=== PATIENT | male | born 1990 | race Caucasian/White ===

== ENCOUNTER → 2017-03-08 | Outpatient (CLI) | payer BC ==
[~2017-03-08] MED LIST: CEPH500C PO; SULF800T23 PO
--- NOTE | 2017-03-08 13:43 | DIAGNOSTIC IMAGING REPORT ---
CHEST 2 VIEWS ROUTINE CLINICAL HISTORY: R06.09 Dyspnea on [id number] dyspnea COMPARISON STUDY: No previous studies for comparison. FINDINGS: The bones soft tissues and hemidiaphragms are normal. The cardiomediastinal silhouette is normal. The lungs are clear. The pulmonary vasculature is normal. IMPRESSION: Negative chest. The above report was generated using voice recognition software. It may contain grammatical, syntax or spelling errors. Electronically signed by: Dennis Pires M.D. 03/08/2017 1:42 PM Dictated Date/Time: 03/08/2017 1:37 PM
== END | disposition home or self-care (01) ==
LOC: C.RAD1850 13:25
PROVIDERS: ATTEND Internal Medicine
DX: R06.09 Other forms of dyspnea (principal)

== ENCOUNTER → 2017-03-14 | Outpatient (CLI) | payer BC ==
--- NOTE | 2017-03-14 07:37 | DIAGNOSTIC IMAGING REPORT ---
ABDOMEN LIMITED (US) CLINICAL HISTORY: R74.0 elevated liver function tests. Hepatic steatosis. COMPARISON STUDY: 06/26/2015 FINDINGS: The liver is of increased echogenicity, nonspecific finding most often seen in hepatic steatosis. There is no right-sided hydronephrosis. There is no ductal dilatation. The common bile duct measures 6 mm. There is a hypoechoic focus in the liver adjacent to gallbladder fossa likely representing focal fatty sparing. The gallbladder appears sonographically normal. The pancreas appears normal as visualized. IMPRESSION: 1. Increased hepatic echogenicity, consistent with hepatic steatosis 2. No evidence of ductal dilatation 3. Ultrasonographically normal gallbladder and pancreas Electronically signed by: Grayson Rosa M.D. 03/14/2017 7:36 AM Dictated Date/Time: 03/14/2017 7:35 AM
== END | disposition home or self-care (01) ==
LOC: C.ULTR 07:12
PROVIDERS: ATTEND Internal Medicine
DX: R74.0 Nonspecific elevation of levels of transaminase and lactic acid dehydrogenase [LDH] (principal); Z87.19 Personal history of other diseases of the digestive system

== ENCOUNTER → 2017-04-11 | Outpatient (CLI) | payer BC ==
[~2017-04-11] VITALS: Ht 185.4 cm; Wt 103.0 kg
[2017-04-11 12:19] VITALS: BP 129/84; PULSE 55; Ht 185.4 cm; Wt 103.0 kg
== END | disposition home or self-care (01) ==
LOC: C.NEUR 11:53
PROVIDERS: ATTEND Internal Medicine Pulmonary Disease
DX: G47.30 Sleep apnea, unspecified (principal); R53.83 Other fatigue

== ENCOUNTER → 2017-06-08 | Day surgery (SDC) | payer BC ==
[2017-06-07 08:28] VITALS: Ht 185.4 cm; Wt 104.5 kg
[~2017-06-08] VITALS: Ht 185.4 cm; Wt 104.5 kg
[~2017-06-08] MED LIST changes: -CEPH500C PO; +LIDOCAINE HCL 2% 2 ML VIAL (20MG/ML) ONE; +MIDAZOLAM HCL 1 MG/ML 2ML VIAL ONE; +MODA200T42 PO; +PROPOFOL IV EMULSION 10 MG/ML 20 ML VIAL IV ONE; +SODIUM CHLORIDE 0.9% 500ML 500 ML IV ONE; -SULF800T23 PO
--- NOTE | 2017-06-08 14:57 | Endo History and Physical ---
History & Physical Date of Service: Jun 08, 2017. Chief Complaint: CHANGE IN BOWEL HABITS, RECTAL BLEEDING Referring Physician: DR. CASILLAS History of Present Illness rectal bleeding; change in BM Past Surgical History Hx Cardiac Surgery: No Hx Internal Defibrillator: No Hx Pacemaker: No Hx Abdominal Surgery: No Hx of Implantable Prosthesis: No Hx Post-Op Nausea and Vomiting: No Hx Cancer Surgery: No Hx Thoracic Surgery: No Hx Orthopedic: Yes (LEFT KNEE ARTHROSCOPY) Hx Urinary Tract Surgery: No Family History None Social History Smoking Status: Never Smoker Hx Substance Use: No Hx Alcohol Use: No Allergies Coded Allergies: NO KNOWN DRUG ALLERGIES (Verified Allergy, Unknown, ., 06/08/17) Current Medications Reported Home Medications Medications Dose Route/Sig Max Daily Dose Days Date Category Provigil (Modafinil) 200 Mg Tab 200 Mg PO QAM 06/07/17 Reported Vital Signs Weight (Kilograms): 104.55 Height (Feet): 6 Height (Inches): 1 Date Time Temp Pulse Resp B/P (MAP) Pulse Ox O2 Delivery O2 Flow Rate FiO2 06/08/17 14:23 36.7 65 20 129/65 (86) 100 Room Air Physical Exam General Appearance: WD/WN, no apparent distress Respiratory/Chest: Auscultation: breath sounds normal Cardiovascular: Heart Auscultation: RRR Abdomen: Bowel Sounds: normal Inspection & Palpation: soft, non-distended, no tenderness, guarding & rebound Assessment and Plan colonoscopy with bx if needed
--- NOTE | 2017-06-08 15:21 | Discharge Instructions ---
Endoscopy Patient Instructions Date / Procedure(s) Performed Jun 08, 2017. Colonoscopy Allergy Information Coded Allergies: NO KNOWN DRUG ALLERGIES (Verified Allergy, Unknown, ., 06/08/17) Discharge Date / Findings Jun 08, 2017. Hemorrhoids Reported Home Medications Medications Dose Route/Sig Max Daily Dose Days Date Category Provigil (Modafinil) 200 Mg Tab 200 Mg PO QAM 06/07/17 Reported Medication Instructions Restart Stopped Medication(s): Reported Home Medications Medications Dose Route/Sig Max Daily Dose Days Date Category Provigil (Modafinil) 200 Mg Tab 200 Mg PO QAM 06/07/17 Reported Reported Home Medications Medications Dose Route/Sig Max Daily Dose Days Date Category Provigil (Modafinil) 200 Mg Tab 200 Mg PO QAM 06/07/17 Reported Provider Instructions Activity Restrictions - No exercising or heavy lifting for 24 hours. - Do not drink alcohol the day of the procedure. - Do not drive a car or operate machinery until the day after the procedure. - Do not make any important decisions or sign important papers in 24 hours after the procedure. Following Day: - Return to full activity which may include returning to work/school. Diet Start your diet with liquids and light foods (jello, soup, juice, toast). Then eat your usual diet if not nauseated. Treatment For Common After Affects For mild abdominal pain, bloating, or excessive gas: - Rest - Eat lightly - Lie on right side Follow-Up Information Follow-up with DR. CASILLAS as scheduled Anesthesia Information What You Should Know You have had a procedure that required some medicine to reduce anxiety and discomfort. This treatment is called moderate sedation. After receiving the treatment, you may be sleepy, but you will be able to breathe on your own. The effects of the treatment may last for several hours. Follow these instructions along with Activity/Diet recommendations noted above: * Do NOT do anything where dizziness or clumsiness would be dangerous. * Rest quietly at home today, then you can be up and about tomorrow. * Have a responsible person stay with you the rest of today. * You may have had an I.V. today. If so, you may take the dressing off later today. Recommendations Call your doctor if: * Trouble breathing * Continuous vomiting for more than 24 hours * Temperature above 101 degrees * Severe abdominal pain or bloating * Pain not relieved by pain medicine ordered * There is increased drainage or redness from any incision * A large amount of rectal bleeding greater than 2-3 tablespoons. (If you had a polyp/s removed or have hemorrhoids, a small amount of blood - from the rectum is to be expected.) * You have any unanswered questions or concerns. IN THE EVENT OF A SERIOUS EMERGENCY, GO TO THE NEAREST EMERGENCY ROOM Your discharge instructions were prepared by provider Bernabe Cantrell. Patient Instructions Signature Page Tremayne Waite Patient (or Guardian) Signature/Date: I have read and understand the instructions given to me by my caregivers. Caregiver/RN/Doctor Signature/Date: The above-named patient and/or guardian has received patient instructions on this date. + Original Patient Signature Page (only) stays with chart. Please make copy for patient.
--- NOTE | 2017-06-08 15:30 | GI REPORT ---
Procedure Date: 06/08/2017 2:42 PM Procedure: Colonoscopy Indications: Hematochezia, Incidental change in bowel habits noted Medicines: Propofol per Anesthesia Complications: No immediate complications. Estimated blood loss: None. Estimated Blood Loss: Estimated blood loss was minimal. Procedure: Pre-Anesthesia Assessment: - Prior to the procedure, a History and Physical was performed, and patient medications and allergies were reviewed. The patient's tolerance of previous anesthesia was also reviewed. The risks and benefits of the procedure and the sedation options and risks were discussed with the patient. All questions were answered, and informed consent was obtained. Prior Anticoagulants: The patient has taken no previous anticoagulant or antiplatelet agents. ASA Grade Assessment: II - A patient with mild systemic disease. After reviewing the risks and benefits, the patient was deemed in satisfactory condition to undergo the procedure. After I obtained informed consent, the scope was passed under direct vision. Throughout the procedure, the patient's blood pressure, pulse, and oxygen saturations were monitored continuously. The Scope was introduced through the anus and advanced to the terminal ileum, with identification of the appendiceal orifice and IC valve. The colonoscopy was performed without difficulty. The patient tolerated the procedure well. The quality of the bowel preparation was good. Findings: The perianal and digital rectal examinations were normal. Pertinent negatives include normal sphincter tone, no palpable rectal lesions and no anal lesion or abnormality was detected. The terminal ileum appeared normal. Biopsies were taken with a cold forceps for histology. Estimated blood loss was minimal. Verification of patient identification for the specimen was done by the physician and solar energy technician using the patient's name and medical record number. The colon (entire examined portion) appeared normal. The rectum, descending colon and ascending colon appeared normal. Biopsies were taken with a cold forceps for histology. Estimated blood loss was minimal. Verification of patient identification for the specimen was done by the physician and solar energy technician using the patient's name and medical record number. No additional abnormalities were found on retroflexion. Non-bleeding internal hemorrhoids were found during retroflexion. The hemorrhoids were mild. Impression: - The examined portion of the ileum was normal. Biopsied. - The entire examined colon is normal. - The rectum, descending colon and ascending colon are normal. Biopsied. - Non-bleeding internal hemorrhoids. Recommendation: - Repeat colonoscopy for surveillance based on pathology results. - Await pathology results. - Return to referring physician as previously scheduled. MD Bernabe De Jesus MD 06/08/2017 3:29:45 PM This report has been signed electronically. Note Initiated On: 06/08/2017 2:42 PM I attest to the content of the Intraoperative Record and orders documented therein, exceptions below
--- NOTE | 2017-06-08 15:45 | Anesthesiology Progress Note ---
Anesthesia Post Op Note Date & Time Jun 08, 2017 at 15:45 Vital Signs Pain Intensity: 0 Vital Signs Past 12 Hours Date Time Temp Pulse Resp B/P (MAP) Pulse Ox O2 Delivery O2 Flow Rate FiO2 06/08/17 15:29 73 16 99/50 (66) 96 Nasal Cannula 2 06/08/17 14:23 36.7 65 20 129/65 (86) 100 Room Air Notes Mental Status: alert / awake / arousable, participated in evaluation Pt Amnestic to Procedure: Yes Nausea / Vomiting: adequately controlled Pain: adequately controlled Airway Patency, RR, SpO2: stable & adequate BP & HR: stable & adequate Hydration State: stable & adequate Anesthetic Complications: no major complications apparent
[2017-06-08 15:59] VITALS: BP 126/73; PULSE 73; O2SAT 98
== END | disposition home or self-care (01) ==
LOC: C.GI 14:02
PROVIDERS: ATTEND Internal Medicine Gastroenterology
DX: K64.8 Other hemorrhoids (principal); K92.1 Melena; R19.4 Change in bowel habit